=== PATIENT | male | born 1990 | race Caucasian/White ===

== ENCOUNTER 2018-07-18 18:34 | Emergency (ER) | payer OTHER ==
[2018-07-18] MEDS ORDERED: Ketorolac 30 MG/ML SDV IM ONE (19:18)
[2018-07-18] MEDS ORDERED: Oseltamivir 75 MG Cap PO ONE (19:21)
--- NOTE | 2018-07-18 20:52 | EDM.PDOC ---
ED HPI GENERAL MEDICAL PROBLEM - General Chief Complaint: Fever Stated Complaint: fever, body aches, chills Time Seen by Provider: 07/18/18 18:45 Source of Information: Reports: Patient History Limitations: Reports: No Limitations - History of Present Illness INITIAL COMMENTS - FREE TEXT/NARRATIVE: Pt. presents to ER with complaints of fever, chills, myalgias, arthralgias, cough and nasal congestion. States that the symptoms started at 0800 this AM. He has had his flu shot. Denies any obvious sick contacts. He denies any chest pain or shortness of breath. No nausea, vomiting, or diarrhea. Denies any rashes. Denies any abdominal pain. States that he has myalgias in his lower extremities and in his upper shoulders primarily. States that his "skin hurts" and feels chilled. Onset: Today Onset Date: 07/18/18 Location: Reports: Generalized Throat Pain Score (Numeric/FACES): 6 - Related Data Allergies Allergy/AdvReac Type Severity Reaction Status Date / Time Dairy Products Allergy Airway Verified 07/18/18 19:26 Tightness Home Meds: Home Meds . [No Known Home Meds] 07/18/18 [History] Past Medical History - Past Health History Medical/Surgical History: Denies Medical/Surgical History Social & Family History - Tobacco Use Smoking Status *Q: Never Smoker - Recreational Drug Use Recreational Drug Use: No ED ROS GENERAL - Review of Systems Review Of Systems: See Below Constitutional: Reports: Fever, Chills, Malaise, Fatigue HEENT: Reports: Rhinitis, Sinus Problem Respiratory: Reports: Cough Cardiovascular: Reports: No Symptoms Endocrine: Reports: No Symptoms GI/Abdominal: Reports: No Symptoms : Reports: No Symptoms Musculoskeletal: Reports: No Symptoms Skin: Reports: No Symptoms Neurological: Reports: No Symptoms Psychiatric: Reports: No Symptoms Hematologic/Lymphatic: Reports: No Symptoms Immunologic: Reports: No Symptoms ED EXAM, GENERAL - Physical Exam Exam: See Below Exam Limited By: No Limitations General Appearance: Alert, WD/WN, Mild Distress Eye Exam: Bilateral Eye: EOMI, Normal Fundi, Normal Inspection, PERRL Ears: Normal External Exam, Normal Canal, Hearing Grossly Normal, Normal TMs Ear Exam: Bilateral Ear: Auricle Normal, Canal Normal, TM normal Nose: Normal Inspection, Normal Mucosa, No Blood Throat/Mouth: Normal Inspection, Normal Lips, Normal Teeth, Normal Gums, Normal Oropharynx, Normal Voice, No Airway Compromise Head: Atraumatic, Normocephalic Neck: Normal Inspection, Supple, Lymphadenopathy (L), Lymphadenopathy (R) Respiratory/Chest: No Respiratory Distress, Lungs Clear, Normal Breath Sounds, No Accessory Muscle Use, Chest Non-Tender Cardiovascular: Normal Peripheral Pulses, Regular Rate, Rhythm, No Edema, No Gallop, No JVD Peripheral Pulses: 3+: Radial (L) GI/Abdominal: Normal Bowel Sounds, Soft, Non-Tender, No Organomegaly, No Distention, No Abnormal Bruit, No Mass (Male) Exam: Deferred Rectal (Males) Exam: Deferred Back Exam: Normal Inspection, Full Range of Motion, NT Extremities: Normal Inspection, Normal Range of Motion, Non-Tender, Normal Capillary Refill, No Pedal Edema Neurological: Alert, Oriented, CN II-XII Intact, Normal Cognition, Normal Gait, Normal Reflexes, No Motor/Sensory Deficits Psychiatric: Normal Affect, Normal Mood Skin Exam: Warm, Dry, Intact, Pallor Course - Vital Signs Last Recorded V/S: Last Vital Signs Temp 37.4 C 07/18/18 18:45 Pulse 114 H 07/18/18 18:45 Resp 18 07/18/18 18:45 BP 116/85 07/18/18 18:45 Pulse Ox 98 07/18/18 18:45 - Orders/Labs/Meds Orders: Active Orders 24 hr Category Date Time Status STREP SCRN A RAPID W CULT CONF [RM] Routine Lab 07/18/18 18:50 Received Meds: Medications Discontinued Medications Generic Name Dose Route Start Last Admin Trade Name Eliane PRN Reason Stop Dose Admin Ketorolac Tromethamine 30 mg 07/18/18 19:18 07/18/18 19:40 Toradol IM 07/18/18 19:19 30 mg ONETIME ONE Administration Oseltamivir Phosphate 75 mg 07/18/18 19:21 07/18/18 19:43 Tamiflu PO 07/18/18 19:22 75 mg ONETIME ONE Administration Departure - Departure Time of Disposition: 19:45 Disposition: Home, Self-Care 01 Clinical Impression: Influenza - Discharge Information Instructions: Influenza, Adult Forms: ED Department Discharge Additional Instructions: Tamiflu 75mg twice daily until gone (5 days total) Drink plenty of fluids Tylenol and ibuprofen for fever/discomfort Off work until 24 hours after your last fever. - My Orders Last 24 Hours: My Active Orders 07/18/18 18:50 STREP SCRN A RAPID W CULT CONF [RM] Routine - Assessment/Plan Last 24 Hours: My Active Orders 07/18/18 18:50 STREP SCRN A RAPID W CULT CONF [RM] Routine Plan: Tamiflu 75mg twice daily until gone (5 days total) Drink plenty of fluids Tylenol and ibuprofen for fever/discomfort Off work until 24 hours after your last fever.
== END 2018-07-18 19:47 | disposition home or self-care (01) ==
LOC: VM.ED 18:34
DX: J11.1 Influenza due to unidentified influenza virus with other respiratory manifestations (principal); Z91.011 Allergy to milk products
CPT/HCPCS: 87081; 87804; 87880; 96372; 99283; A9270; J1885